=== PATIENT | male | born 1995 | race Caucasian/White ===

== ENCOUNTER 2018-01-21 16:38 | Emergency (ER) | payer OTHER ==
[~2018-01-21] VITALS: Ht 193 cm; Wt 127.0 kg
[2018-01-21] MEDS ORDERED: Amoxicillin500 MG PO (17:41)
== END 2018-01-21 17:50 | disposition home or self-care (01) ==
LOC: ER 16:38
DX: K04.7 Periapical abscess without sinus (principal); K02.9 Dental caries, unspecified; Z79.2 Long term (current) use of antibiotics
CPT/HCPCS: 99282